=== PATIENT | female | born 1965 | race Caucasian/White ===

== ENCOUNTER 2017-01-23 12:24 | Emergency (ER) | payer OTHER ==
--- NOTE | 2017-01-23 14:13 | UC ---
Complaint Female HPI - HPI Summary HPI Summary: Pt here w/ Rt flank pain x 4 days. Noticed after working a long shift - thought maybe she pulled a muscle. Tried changing her foot wear as she works on her feet on concrete floors - no relief. Associated sx of urinary frequency and urgency. Pain is not worse w/ movement. Denies fever, chills, dysuria, hematuria , N/V/D, ab pain. Last BM was this morning - normal for pt. No vaginal sx reported. Tried aleve last night which helped. No acute pain at this time. No h/ o UTI's nor stone. Drinks coffee daily. - History Of Current Complaint Chief Complaint: UCGU Stated Complaint: UTI Time Seen by Provider: 01/23/17 13:55 Hx Obtained From: Patient - Allergies/Home Medications Allergies/Adverse Reactions: Allergies Allergy/AdvReac Type Severity Reaction Status Date / Time No Known Allergies Allergy Verified 01/23/17 12:59 Home Medications: Home Medications Biotin 5 mg PO DAILY 01/23/17 [History Confirmed 01/23/17] Lisinopril/HCTZ 10/12.5(NF) [Zestoretic 10/12.5(NF)] 1 tab PO DAILY 01/23/17 [ History Confirmed 01/23/17] Sertraline HCl [Zoloft] 100 mg PO DAILY 01/23/17 [History Confirmed 01/23/17] PMH/Surg Hx/FS Hx/Imm Hx Previously Healthy: Yes Cardiovascular History: Hypertension - controlled w/ lisinopril + HCTZ Psychological History: Depression - sertraline - Surgical History Surgical History: Yes Surgery Procedure, Year, and Place: hysterectomy, R wrist - Family History Known Family History: Positive: None - Social History Occupation: Employed Full-time Lives: With Family Alcohol Use: None Substance Use Type: None Smoking Status (MU): Never Smoked Tobacco Review of Systems Constitutional: Negative Skin: Negative Respiratory: Negative Cardiovascular: Negative Gastrointestinal: Negative Genitourinary: Other - see HPI Motor: Negative Neurovascular: Negative Musculoskeletal: Other: - see HPI Neurological: Negative Psychological: Negative Is Patient Immunocompromised?: No All Other Systems Reviewed And Are Negative: Yes Physical Exam Triage Information Reviewed: Yes Appearance: Well-Appearing, No Pain Distress, Well-Nourished Vital Signs: Initial Vital Signs Temp 98.6 F 01/23/17 12:52 Pulse 75 09/27/17 12:52 Resp 16 01/23/17 12:52 BP 114/70 01/23/17 12:52 Pulse Ox 99 01/23/17 12:52 Vital Signs Reviewed: Yes Eye Exam: Normal Eyes: Positive: Conjunctiva Clear ENT Exam: Normal ENT: Positive: Normal ENT inspection, Hearing grossly normal, Pharynx normal - mucosa moist Respiratory Exam: Normal Respiratory: Positive: Chest non-tender, Lungs clear, Normal breath sounds, No respiratory distress Cardiovascular Exam: Normal Cardiovascular: Positive: RRR Abdomen Description: Positive: Nontender, No Organomegaly, Soft, CVA Tenderness (R). Negative: CVA Tenderness (L), Distended, Guarding Bowel Sounds: Positive: Present Musculoskeletal Exam: Normal Musculoskeletal: Positive: Strength Intact, ROM Intact Neurological Exam: Normal Psychological Exam: Normal Skin Exam: Normal Complaint Female Dx - Course Course Of Treatment: Pt presents w/ Rt flank pain x 4 days. Associated sx of urinary frequency/urgency. CVA TTP. Offered pain medication -pt declined. CT of ab/pelvis reveals pyelonephritis vs. recent passage of a stone. Also incidenatal finding of liver mass (radiologist suggested outpt f/u). U/A reveals trace blood, +1 leukocytes. Vitals WNL. Discussed concern about renal damage, infection unknown to us here at this time as we cannot draw labs. She is aware of other pathologies and agrees to go to ED for further testing and tx as recommended. Declines ambulance. Will go to by car. - Differential Dx/Diagnosis Provider Diagnoses: Rt flank pain - Physician Notifications Discussed Patient Care With: Willy Anderson Discharge - Discharge Plan Condition: Stable Disposition: OTHER Discharge Disposition Comment: Transfer to [facility] [place] ED Patient Education Materials: Flank Pain (ED) Referrals: Ileana Vasquez [Primary Care Provider] - Additional Instructions: The definitive cause of your flank pain has not been identified today however there is a concern for pyelonephritis, an infection of the kidney. It is advised that you go directly to the ED for further testing to better assess and treat this current condition.
[2017-01-23 14:44] VITALS: BP 128/83
--- NOTE | 2017-01-23 14:45 | RAD ---
INDICATION: Right flank pain. COMPARISON: Comparison is made with a prior CT of the abdomen and pelvis from March 16, 2005. TECHNIQUE: A CT scan of the abdomen and pelvis was performed without intravenous or oral contrast. Contiguous axial sections were obtained from the lung bases through the symphysis pubis. Images were reconstructed in the coronal and sagittal planes. FINDINGS: Images through the lung bases demonstrate a small nodule present in the right lower lobe measuring 6 mm in size. This is not seen on the prior study. The lung bases were otherwise clear. No pleural effusion is present. The liver and spleen are normal in size. There is a small 0.5 cm hypodense fluid density lesion in the inferior portion of the right hepatic lobe. This is too small to characterize by CT although likely represents a cyst. No calcified gallstones are seen. The pancreas appears to be within normal limits. The adrenal glands and kidneys are normal in size. There is mild dilatation of the right renal pelvis and right ureter to the distal portion of the pelvis. No ureteral calculus is seen. There is mild stranding adjacent to the proximal portion of the ureter. These findings are nonspecific although would suggest pyelonephritis or recent passage of a calculus. No bladder calculus is seen. No renal calculi are noted. The aorta is normal in caliber with mild calcific plaque present. No significant enlarged retroperitoneal lymph nodes are seen. The stomach, small and large bowel appear nondistended. The appendix is within normal limits. There is mild descending and sigmoid diverticulosis without evidence for diverticulitis or colitis. The patient is status post hysterectomy. No free intraperitoneal air or fluid is seen. No significant focal osseous abnormality is seen. IMPRESSION: 1. MILD DILATATION OF THE RIGHT RENAL PELVIS AND URETER WITH STRANDING IN THE ADJACENT RETROPERITONEAL FAT SUGGESTIVE OF PYELONEPHRITIS OR RECENT PASSAGE OF A CALCULUS. RECOMMEND CLINICAL CORRELATION. 2. SMALL NEW RIGHT LOWER LOBE PULMONARY NODULE. RECOMMEND AN OUTPATIENT NONCONTRAST CT OF THE CHEST FOR FURTHER EVALUATION.
--- NOTE | 2017-01-24 16:26 | ED ---
Progress - Progress Note Progress Note: CALL PATIENT UCX (+). PATIENT WAS TOLD TO GO TO ER SO SEE HOW THEY ARE DOING. Course/Dx - Course Course Of Treatment: Pt presents w/ Rt flank pain x 4 days. Associated sx of urinary frequency/urgency. CVA TTP. Offered pain medication -pt declined. CT of ab/pelvis reveals pyelonephritis vs. recent passage of a stone. Also incidenatal finding of liver mass (radiologist suggested outpt f/u). U/A reveals trace blood, +1 leukocytes. Vitals WNL. Discussed concern about renal damage, infection unknown to us here at this time as we cannot draw labs. She is aware of other pathologies and agrees to go to ED for further testing and tx as recommended. Declines ambulance. Will go to by car. - Diagnoses Provider Diagnoses: UTI (urinary tract infection)
== END 2017-01-23 15:30 ==
LOC: UCEAST 12:24
DX: R10.10 Upper abdominal pain, unspecified (principal)
CPT/HCPCS: 74176; 81003; 87077; 87086; 99211; G0463

== ENCOUNTER 2017-01-23 16:23 | Emergency (ER) | payer OTHER ==
[2017-01-23 16:40] VITALS: BP 126/74
[2017-01-23 17:49] LABS: Hematocrit 43 % (35-47); Hemoglobin 14.4 g/dl (12.0-16.0); Mean Corpuscular HGB Conc 34 g/dl (31-36); Mean Corpuscular Hemoglobin 29 pg (27-31); Mean Corpuscular Volume 86 fL (80-97); Mean Platelet Volume 9 um3 (7.4-10.4); Red Blood Count 4.98 10^6/ul (4.0-5.4); Red Cell Distribution Width 13 % (10.5-15); White Blood Count 5.5 10^3/ul (3.5-10.8)
[2017-01-23 18:05] LABS: Albumin 4.4 g/dL (3.2-5.2); BUN/Creatinine Ratio 10.7 (8-20); Calcium 9.3 mg/dL (8.6-10.3); EGFR African American 104.4 (>60); EGFR Non-African American 81.1 (>60); Globulin 3.3 g/dL (2-4); Potassium 3.6 mmol/L (3.5-5.0); Total Bilirubin 0.6 mg/dL (0.2-1.0); Total Protein 7.7 g/dL (6.4-8.9)
[2017-01-23] MEDS ORDERED: Sulfamethox/Trimethoprim DS 800/160* TAB PO ONE (18:27)
--- NOTE | 2017-01-23 18:28 | ED ---
GI/ HPI - HPI Summary HPI Summary: 51F presents with right flank pain x 4 days. She stands alot at work and states she thought it was her shoes so she changed them with no change in pain. She states has been having urinary frequency and urgency. No injury. no cough. Denies fever, dysuria, hematuria, N/V/D, ab pain. Tried aleve last night which helped. States pain constant. No history of UTI's nor kindey stone. seen at urgent care and has CT done which showed dilation of right kidney could be pyelo vs passed kidney stone. - History of Current Complaint Chief Complaint: EDFlankPain Time Seen by Provider: 01/23/17 17:22 Stated Complaint: RT FLANK PAIN-SENT FROM Pain Intensity: 5 - Allergy/Home Medications Allergies/Adverse Reactions: Allergies Allergy/AdvReac Type Severity Reaction Status Date / Time No Known Allergies Allergy Verified 01/23/17 12:59 PMH/Surg Hx/FS Hx/Imm Hx Endocrine/Hematology History: Denies: Hx Anticoagulant Therapy Cardiovascular History: Reports: Hx Hypertension - Surgical History Surgery Procedure, Year, and Place: hysterectomy, R wrist Infectious Disease History: No Infectious Disease History: Denies: History Other Infectious Disease, Traveled Outside the [place] in Last 30 Days - Family History Known Family History: Positive: None - Social History Alcohol Use: None Substance Use Type: Reports: None Smoking Status (MU): Never Smoked Tobacco Review of Systems Negative: Fever Negative: Chest Pain Negative: Shortness Of Breath Negative: Abdominal Pain, Vomiting, Nausea Positive: frequency, flank pain. Negative: dysuria All Other Systems Reviewed And Are Negative: Yes Physical Exam Triage Information Reviewed: Yes Vital Signs On Initial Exam: Initial Vitals Temp Pulse Resp BP Pulse Ox 97.9 F 76 18 126/74 96 01/23/17 16:37 01/23/17 16:37 01/23/17 16:37 01/23/17 16:37 01/23/17 16:37 Vital Signs Reviewed: Yes Appearance: Positive: Well-Appearing Skin: Positive: Warm, Dry Head/Face: Positive: Normal Head/Face Inspection Eyes: Positive: Normal, Conjunctiva Clear Respiratory/Lung Sounds: Positive: Clear to Auscultation, Breath Sounds Present Cardiovascular: Positive: Normal, RRR Abdomen Description: Positive: Nontender, Soft, CVA Tenderness (R) Bowel Sounds: Positive: Present Psychiatric: Positive: Normal - Hilaria Coma Scale Coma Scale Total: 15 Diagnostics - Vital Signs Vital Signs Temp Pulse Resp BP Pulse Ox 01/23/17 16:37 97.9 F 76 18 126/74 96 - Laboratory Lab Results: Lab Results 01/23/17 01/23/17 01/23/17 Range/Units 17:38 17:38 17:38 WBC 5.5 (3.5-10.8) 10^3/ul RBC 4.98 (4.0-5.4) 10^6/ul Hgb 14.4 (12.0-16.0) g/dl Hct 43 (35-47) % MCV 86 (80-97) fL MCH 29 (27-31) pg MCHC 34 (31-36) g/dl RDW 13 (10.5-15) % Plt Count 276 (150-450) 10^3/ul MPV 9 (7.4-10.4) um3 Neut % (Auto) 68.8 (38-83) % Lymph % (Auto) 21.7 L (25-47) % [place] % (Auto) 8.3 (1-9) % Eos % (Auto) 0.5 (0-6) % Baso % (Auto) 0.7 (0-2) % Absolute Neuts (auto) 3.8 (1.5-7.7) 10^3/ul Absolute Lymphs (auto) 1.2 (1.0-4.8) 10^3/ul Absolute Monos (auto) 0.5 (0-0.8) 10^3/ul Absolute Eos (auto) 0 (0-0.6) 10^3/ul Absolute Basos (auto) 0 (0-0.2) 10^3/ul Absolute Nucleated RBC 0 10^3/ul Nucleated RBC % 0 Sodium 134 (133-145) mmol/L Potassium 3.6 (3.5-5.0) mmol/L Chloride 98 L (101-111) mmol/L Carbon Dioxide 28 (22-32) mmol/L Anion Gap 8 (2-11) mmol/L BUN 8 (6-24) mg/dL Creatinine 0.75 (0.51-0.95) mg/dL Est GFR ( Amer) 104.4 (>60) Est GFR (Non-Af Amer) 81.1 (>60) BUN/Creatinine Ratio 10.7 (8-20) Glucose 107 H (70-100) mg/dL Lactic Acid 0.7 (0.5-2.0) mmol/L Calcium 9.3 (8.6-10.3) mg/dL Total Bilirubin 0.60 (0.2-1.0) mg/dL AST 21 (13-39) U/L ALT 17 (7-52) U/L Alkaline Phosphatase 76 (34-104) U/L C-React Prot High Sens 20.94 mg/L Total Protein 7.7 (6.4-8.9) g/dL Albumin 4.4 (3.2-5.2) g/dL Globulin 3.3 (2-4) g/dL Albumin/Globulin Ratio 1.3 (1-3) Lipase 47 (11.0-82.0) U/L Result Diagrams: 01/23/17 17:38 01/23/17 17:38 Lab Statement: Any lab studies that have been ordered have been reviewed, and results considered in the medical decision making process. GIGU Course/Dx - Course Course Of Treatment: 51F presents with right flank pain x 4 days. She stands alot at work and states she thought it was her shoes so she changed them with no change in pain. She states has been having urinary frequency and urgency. No injury. no cough. Denies fever, dysuria, hematuria, N/V/D, ab pain. Tried aleve last night which helped. States pain constant. No history of UTI's nor kindey stone. seen at urgent care and has CT done which showed dilation of right kidney could be pyelo vs passed kidney stone but due to pain not resolving likely pyelo. on exam abdomen soft nontender. CVA tenderness right. u.a shows leuko. labs wbc normal. will treat with bactrim for pyelo. patient understands and agrees with plan. - Diagnoses Differential Diagnoses - Female: Pyelonephritis, Urinary Tract Infection, Ureteral Calculi Provider Diagnoses: Pyelonephritis Discharge - Discharge Plan Condition: Good Disposition: HOME Prescriptions: Ondansetron ODT TAB* [Zofran 4 MG Odt TAB*] 4 mg PO Q6H PRN #8 tab.odt PRN Reason: Nausea Sulfamethox/Trimethoprim DS* [Bactrim DS 800/160 TAB*] 1 tab PO BID #27 tab Patient Education Materials: Kidney Infection (ED) Referrals: Ileana Vasquez [Primary Care Provider] - Additional Instructions: Take antibiotic twice a day for 14 days, starting tomorrow Drink plenty of water Take zofran every 6 hours for nausea Take Tylenol or ibuprofen every 6 hours as needed for pain and fever Return to ED if develop severe vomiting, or any new or worsening symptoms
[2017-01-23 19:21] LABS: Urine Bacteria Absent (Absent); Urine Bilirubin Negative (Negative); Urine Glucose Negative (Negative); Urine Nitrite Negative (Negative)
== END 2017-01-23 19:02 | disposition home or self-care (01) ==
LOC: ED 16:23
DX: N12 Tubulo-interstitial nephritis, not specified as acute or chronic (principal); I10 Essential (primary) hypertension; Z90.710 Acquired absence of both cervix and uterus
CPT/HCPCS: 36415; 80053; 81003; 81015; 83605; 83690; 85025; 86141; 99282; A9270-GY